=== PATIENT | male | born 1965 | race Caucasian/White ===

== ENCOUNTER 2017-04-11 13:37 | Observation (INO) | payer MEDICARE, OTHER ==
[2017-04-11] VITALS (25 sets, daily range): BP systolic 82–117; BP diastolic 40–58; PULSE 84–108; RESP 16–20; Ht 180.3 cm; Wt 141.0 kg
[~2017-04-11] VITALS: Ht 180.3 cm; Wt 141.0 kg
[~2017-04-11 13:37] MED LIST: ACET325T33 PO; ALLO100T PO; ASCO500C7 PO; ASPI81TA3 PO; CEFAZOLIN 1 GM/50 ML (PMX) 50 ML IVPB SCH; CHOL2000 PO; DOCU-144 PO; EPHEDrine SULFATE 50 MG/5 ML SYG ONE; GABA300C16 PO; HYDR-3498 PO; LACTATED RINGER'S 1,000 ML IV* SCH; LANT3I SC; SENN8.6C3 PO; SEVE800T7 PO; SIMV20TA PO
[2017-04-11 14:06] LABS: BASOPHIL # 0.1 10^3/ul (0.0-0.1); BASOPHILS % 0.8 % (0.0-2.0); EOSINOPHILS # 0.1 10^3/ul (0.0-0.5); EOSINOPHILS % 1.6 % (0.0-7.0); HEMOGLOBIN 12.4 g/dl (14.0-18.0); LYMPHOCYTES # 1.7 10^3/ul (0.8-2.9); LYMPHOCYTES % 19.6 % (15.0-51.0); MEAN CORPUSCULAR HEMOGLOBIN 32.4 pg (29.0-33.0); MEAN CORPUSCULAR HGB CONC 33.5 g/dl (32.0-37.0); MEAN CORPUSCULAR VOLUME 96.6 fl (82.0-101.0); MEAN PLATELET VOLUME 9.5 fl (7.4-10.4); MONOCYTE # 0.5 10^3/ul (0.3-0.9); MONOCYTES % 6.2 % (0.0-11.0); NEUTROPHILS % 70.7 % (39.0-77.0); PLATELET COUNT 173 10^3/UL (140-415); RED BLOOD COUNT 3.83 10^6/ul (4.70-6.10); RED CELL DISTRIBUTION WIDTH 13.4 % (11.5-14.5); WHITE BLOOD COUNT 8.5 10^3/ul (4.8-10.8)
[2017-04-11 14:20] LABS: INR 1.16; PROTIME 14.9 Sec (12.2-14.2); PT RATIO 1.2
--- NOTE | 2017-04-11 14:22 | RADRPT ---
PROCEDURE: XR Chest. CLINICAL INDICATION: Preop TECHNIQUE: Single frontal view of the chest was obtained. COMPARISON: None. FINDINGS: The cardiomediastinal silhouette is within normal limits. The lungs are clear. No pleural effusion or pneumothorax is identified. Right hemidiaphragm remains moderately elevated. Visualized osseou s structures are intact. IMPRESSION: No evidence of active cardiopulmonary disease. RPTAT: VV .Gera James MD, MD Date Time Electronically viewed and signed by .Gera James MD, MD on 04/11/2017 14:22 .O/
[2017-04-11 14:54] LABS: CALCIUM 9.3 mg/dl (8.4-10.2); CREATININE 6.79 mg/dl (0.61-1.24)
[2017-04-11 14:56] LABS: POTASSIUM 5.8 mmol/L (3.5-5.1)
[2017-04-11] MEDS ORDERED: INSU100C3 SQ (15:14)
[2017-04-11] MEDS ORDERED: ZOLP10TA5 PO (15:14)
[2017-04-11] MEDS ORDERED: ESOM40CA PO (15:14)
[2017-04-11] MEDS ORDERED: INSU100I22 SC (15:14)
[2017-04-11] MEDS ORDERED: LORA10TA72 PO (15:14)
[2017-04-11] MEDS ORDERED: AMIT25TA9 PO (15:14)
[2017-04-11] MEDS ORDERED: SITA50TA2 PO (15:14)
[2017-04-11] MEDS ORDERED: NEPH PO (15:14)
[2017-04-11] MEDS ORDERED: LORA10TA3 PO (15:14)
[2017-04-11] MEDS ORDERED: ROPIVACAINE 0.5 % 30 ML VIAL ONE (15:22)
[2017-04-11] MEDS ORDERED: METOCLOPRAMIDE 10 MG INJ ONE (15:27)
[2017-04-11] MEDS ORDERED: MIDAZOLAM 1 MG/ML 2 ML INJ ONE (15:27)
--- NOTE | 2017-04-11 15:27 | HPN ---
Date/Time of Note Date/Time of Note DATE: 04/11/17 TIME: 15:27 Interval H&P Admission Note Pt. seen H&P reviewed: No system changes JM JACKMAN Apr 11, 2017 15:27
[2017-04-11] MEDS ORDERED: PROPOFOL 20 ML ONE (15:57)
[2017-04-11] MEDS ORDERED: CEFAZOLIN 1 GM INJ ONE (16:06)
[2017-04-11] MEDS ORDERED: FENTAnyl 50 MCG/ML VIAL ONE (16:10)
[2017-04-11] MEDS ORDERED: LIDOCAINE 1% (STERILE-PAK) 30 ML INJ ONE (16:12)
[2017-04-11] MEDS ORDERED: BUPIVACAINE 0.5% (SDV) 30 ML INJ ONE (16:12)
[2017-04-11] MEDS ORDERED: PHENYLephrine (100 MCG/ML) 5ML SYG ONE ×3 (16:26→20:33)
[2017-04-11] MEDS ORDERED: ONDANSETRON 4 MG INJ ONE (16:26)
[2017-04-11] MEDS ORDERED: METOCLOPRAMIDE 10 MG INJ IV PRN (19:00)
[2017-04-11] MEDS ORDERED: MEPERIDINE 25 MG INJ IV PRN (19:00)
[2017-04-11] MEDS ORDERED: ONDANSETRON 4 MG INJ IV PRN (19:00)
[2017-04-11] MEDS ORDERED: HYDROmorphONE (0.2 MG/ML) 10ML SYG IV PRN ×3 (19:00)
[2017-04-11] MEDS ORDERED: DIPHENHYDRAMINE 50 MG INJ IV PRN (19:00)
[2017-04-11] MEDS ORDERED: OXYCODONE/ACETAMINOPHEN (5/325) TAB PO PRN ×2 (19:00)
--- NOTE | 2017-04-11 20:37 | OPR ---
Date/Time of Note Date/Time of Note DATE: 04/11/17 TIME: 20:34 Operative Report Preoperative Diagnosis Right radial shaft retained deep hardware, radial shaft malunion, carpal tunnel syndrome, index and middle finger trigger Postoperative Diagnosis Right radial shaft retained deep hardware, radial shaft malunion, carpal tunnel syndrome, index and middle finger trigger Operation/Procedure Performed Right radial shaft removal of deep hardware, radial shaft osteotomy with plate and screw fixation, carpal tunnel release, index and middle finger trigger release Anesthesia Type: general, other Estimated Blood Loss: 0 - 10 ml's Transfusion Required: no Specimen: none Grafts/Implants Right distal radius extension plate and screws - Acumed Complications: no JM JACKMAN Apr 11, 2017 20:36
[2017-04-11] MEDS ORDERED: INSULIN REGULAR, HUMAN 100 UNIT/1 ML 3ML VIAL SC ONE (21:00)
[2017-04-11] MEDS ORDERED: HYDROmorphONE 1 MG/ML SYG IV PRN (21:30)
[2017-04-11] MEDS ORDERED: NA POLYST SULFON 15 GM/60 ML BTL PO ONE (23:30)
[2017-04-11] MEDS ORDERED: INSULIN ASPART [NOVOLOG] 3 ML PEN SC SCH (23:30)
[2017-04-11] MEDS ORDERED: ACETAMINOPHEN 325 MG TAB PO PRN (23:30)
[2017-04-11] MEDS ORDERED: GLUCAGON 1 MG INJ IM PRN (23:45)
[2017-04-11] MEDS ORDERED: GLUCOSE GEL 15 GRAM TUBE PO PRN ×2 (23:45)
[2017-04-11] MEDS ORDERED: DEXTROSE 50% 50 ML SYRINGE IV PRN ×2 (23:45)
[2017-04-11] MEDS ORDERED: GLUCOSE GEL 15 GRAM TUBE BUCCAL PRN (23:45)
[2017-04-12] VITALS (13 sets, daily range): BP systolic 80–133; BP diastolic 37–58; PULSE 82–100; RESP 18–20
[2017-04-12] MEDS: HYDROmorphONE 1 MG/ML SYG IV PRN ×3 (00:09→13:28)
--- NOTE | 2017-04-12 01:08 | OPR ---
DATE OF OPERATION: 04/11/2017 SURGEON: Atif Brennan MD ANESTHESIA: Peripheral nerve block plus general. PREOPERATIVE DIAGNOSIS: 1. Right radial shaft fracture malunion. 2. Right distal radius retained deep hardware. 3. Right carpal tunnel syndrome. 4. Right index finger trigger. 5. Right middle finger trigger. POSTOPERATIVE DIAGNOSIS: 1. Right radial shaft fracture malunion. 2. Right distal radius retained deep hardware. 3. Right carpal tunnel syndrome. 4. Right index finger trigger. 5. Right middle finger trigger. OPERATIVE PROCEDURE: 1. Right radial shaft osteotomy with plate and screw fixation for malunion. 2. Removal of deep hardware, right distal radius. 3. Right carpal tunnel release, open. 4. Right index finger trigger release. 5. Right middle finger trigger finger release. Operative findings: 1. Malunion of the right radial shaft with significant prominence of the dorsal distal ulna with significant callus formation growing over the plate and screws. 2. Tenosynovitis at the index and middle finger flexor sheath. INDICATION FOR PROCEDURE: 51-year-old male with a previous injury to the right wrist. He underwent surgical fixation and he is unsure what happened subsequent to that, but he has had deformity at his right wrist as well as pain ever since then. He also had numbness throughout his right hand as well as triggering of the index and middle fingers. We discussed options and considering that he had tried conservative management for 2 years with no improvement, he elected to proceed with surgical intervention understanding the risks and benefits. We discussed a wide array of possibilities including possibly shortening the ulna if it was significantly positive after osteotomy of the distal radius. I discussed with the patient that his medical condition may preclude us from doing extensive surgery in one sitting and that we would try to get as much done as possible in one sitting that is safe for him medically. The patient understood and elected to proceed, understanding risks and benefits. OPERATIVE PROCEDURE: The patient was seen in the preoperative area. All further questions were answered. Again, he gave informed consent understanding the risks and benefits. The patient was taken to the operative suite, placed in supine position. A peripheral nerve block was performed at my request for perioperative anesthesia as well as postoperative pain relief. The block was working but was not complete and therefore patient required placement of general anesthesia. The tourniquet was placed on the right upper extremity. The right upper extremity was prepped with ChloraPrep stick and draped in usual sterile fashion. Esmarch bandage was used to exsanguinate the extremity and tourniquet inflated to 250 mmHg. Attention was first turned to the carpal tunnel release and a 2 cm incision at the base of the palm was utilized with sharp dissection carried down through skin and subcutaneous tissue. Retractors were deepened and the palmar aponeurosis was identified and was incised along its ulnar border. Retractors were deepened. The transverse carpal ligament was identified, and was incised along its ulnar border. A retractor placed distally and the ligament was divided at its distal extent under direct visualization. Attention turned proximally and the ligament was divided along its ulnar border under direct visualization. The ligament was completely released and the wound was copiously irrigated. Skin closed with 4-0 nylon. Attention then turned to the middle finger. An oblique incision over the A1 jeff of the middle finger was utilized with sharp dissection carried down through skin and subcutaneous tissue. Scissor dissection revealed the flexor sheath and the sheath was incised along its midline including the entire A1 jeff as well as the proximal 1 mm of the A2 jeff and the PA jeff proximally. The flexor tendons had good glide after release and a flexor tenolysis was performed to ensure glide. Attention was then turned to the index finger and an identical procedure was performed in the middle finger with an oblique incision and sharp dissection through skin and subcutaneous tissue. The flexor sheath incised along its midline including the PA, A1 and the proximal 1 mm of the A2 jeff. A flexor tenolysis was performed. Both wounds were copiously irrigated. Skin closed with 5-0 nylon. Attention was then turned to the distal radius removal of hardware and the previous incision was utilized and was extended proximally, understanding that we would require proximal extension for the osteotomy and plate and screw fixation to correct the malunion. Sharp dissection carried down through skin and subcutaneous tissue. Scissor dissection was used to access the radius as there was significant distortion of normal anatomy and careful dissection was required to preserve all structures including a radial artery that was scarred in and the median nerve which had been transposed radially. The structures were preserved including the radial sensory nerve radially, which had also moved into the surgical site. Care was taken to carefully dissect out all neurovascular structures and tendons and the FCR tendon was revealed and retracted ulnarly. The FPL tendon was found and was retracted ulnarly. The radial shaft was identified and had significant angulation. The angulation was such that I was unable to remove the distal row screws as the wrist was in such flexion that the proximal forearm was in the way of removal of hardware. Therefore, I made the decision to proceed with the osteotomy prior to removing the plate to allow for removal of hardware. Attention was turned to the dorsal radial shaft and sharp dissection carried down through skin and subcutaneous tissue. The first dorsal compartment was identified and was elevated off of the radial shaft at the area of malunion. After the malunion site was visualized circumferentially an oscillating saw was used to make a cut at the malunion site transversely with the proximal shaft. After the cortices had been penetrated, the malunion was freed up, and was brought into a more anatomic position. This allowed me to remove the hardware from the previous plate and screws at the distal radius. All plate and screws were removed, and the volar aspect of the distal radius was rongeured down in order to provide a nice smooth surface for a new plate placement. The most appropriate plate for this pattern was the AcuMed distal radius plate with a proximal extension. The plate was placed across the malunion site and was secured into the shaft proximally. The distal radius was then brought to the plate into a more anatomic position and a screw was placed into the cortex to bring it down flush with the plate. X-ray imaging confirmed appropriate hardware placement and bony alignment which had been significantly improved from the preoperative images. Additional cortical and locking screws were placed proximally and distally and the plate was nicely secured. The dorsal aspect of the malunion site had excellent bone that was prominent dorsally, and this was used for bone autograft in the osteotomy site as an opening wedge osteotomy was used. Additional cancellous bone was used to put into the osteotomy site to recreate normal anatomy and recreate length. The wound was copiously irrigated prior to bone graft placement and then bone graft was densely packed into the osteotomy site. The dorsal and volar wounds were closed with 4-0 nylon. Final x-ray imaging confirmed interval improvement in the fracture alignment with appropriate hardware placement. A Xeroform was placed over the wound followed by sterile gauze, Webril and a sugar-tong splint. Tourniquet was deflated. Of note, the procedure did take an extensive period of time and the first tourniquet was 120 minutes and was let down for a full 30 minutes to allow for reperfusion. The tourniquet was then inflated a second time for 61 minutes. The patient was awakened from anesthesia and taken to the postoperative suite in stable condition, tolerated the procedure well without complications. SPECIMENS: None. ESTIMATED BLOOD LOSS: 5 mL. Sponge, instrument, needle counts correct. Tourniquet time 120 minutes followed by 30 minutes of no tourniquet time, followed by 61 minutes of tourniquet time. Implant: Acumed distal radius plate with extension Fluoroscopic images: 25. CONDITION ON DISCHARGE: Stable. Dictated By: Atif Brennan MD /jamil/teddy /Document#: [id number] KEVON
[2017-04-12] MEDS: INSULIN GLARGINE [LANtus] 3 ML PEN SC SCH ×2 (01:11→21:05)
[2017-04-12] MEDS: Insulin NOVOLOG SS MODERATE Algorithm (SS with meals and bedtime) SC SCH ×5 (01:12→21:06)
[2017-04-12] MEDS: ACCU-CHEK XX SCH (02:00)
[2017-04-12] MEDS: HYDROCODONE/APAP (5/325) TAB PO PRN ×2 (03:22→21:06)
[2017-04-12] MEDS ORDERED: INSULIN ASPART [NOVOLOG] 3 ML PEN SC ONE (03:30)
--- NOTE | 2017-04-12 08:23 | RADRPT ---
Vent Rate: 86 bpm RR Interval: 0 msec [place] Interval: 188 msec QRS Duration: 144 msec QT Interval: 390 msec QTC Interval: 466 msec P-R-T Tracy: 96 - 85 - 44 degrees Normal sinus rhythm Right bundle branch block Abnormal ECG Electronically Signed By: Kayleigh Renee [id number]
--- NOTE | 2017-04-12 10:42 | CONS ---
DATE OF ADMISSION: 04/11/2017 DATE OF CONSULTATION: 04/12/2017 REASON FOR CONSULTATION: Endstage renal disease. HISTORY OF PRESENT ILLNESS: This is a 51-year-old male with a past medical history of endstage renal disease, on dialysis Sunday, , Sunday, access left AV fistula. The patient's primary print support specialist is Dr. Samano. The patient also with a history of hypertension, history of diabetes, morbid obesity, history of lower extremity wounds, who presents to [facility] to undergo elective surgery of the patient's right humerus. The patient had malalignment of his right humerus. As a result, he was brought in and underwent surgical correction of his radial shaft fracture. Following the procedure, the patient was admitted to telemetry for further evaluation and care. Upon my evaluation, patient at this time is currently stable. Denies any fevers, chills, nausea, vomiting. PAST MEDICAL HISTORY: As stated above, history of hypertension, history of diabetes, history of morbid obesity, history of chronic lower extremity wounds, history of endstage renal disease, history of anemia, history of peripheral vascular disease. PAST SURGICAL HISTORY: Status post AV fistula placement, status post lower extremity surgeries. FAMILY HISTORY: Noncontributory. SOCIAL HISTORY: Does not drink, smoke, or do drugs. MEDICATION: The patient's medications have been reviewed. REVIEW OF SYSTEMS: Fourteen review of systems was conducted. Pertinent positives noted in HPI, otherwise negative. PHYSICAL EXAMINATION: VITAL SIGNS: Blood pressure 122/56, respirations 20, pulse 93, temperature 98.1. HEENT: Head is normocephalic. Pupils are reactive to light. NECK: Supple. HEART: Regular rate. LUNGS: Diminished breath sounds at the base. ABDOMEN: Soft, nontender to palpation. No rebound or guarding. EXTREMITIES: Negative for clubbing and cyanosis. Positive edema. DERMATOLOGIC: No rashes. MUSCULOSKELETAL: Patient has a left AV fistula. Right upper extremity dressing is clean, dry, and intact. NEUROLOGIC: No focal deficits. The patient's medications have been reviewed. LABORATORY: From 04/11/2017 shows white count 8.5, hemoglobin 10.4, hematocrit 37.4, platelet count 170. Sodium 150, potassium 5.8, BUN 37, creatinine 6.79. IMPRESSION AND PLAN: This is a 51-year-old male who presents with: 1. Endstage renal disease. The patient is on dialysis Sunday, , and Sunday with access in left AV fistula. Plans for dialysis today for 3 hours on 2 K bath, calcium 2.5, ultrafiltration as tolerated. 2. Hypokalemia. The patient will be dialyzed on a 2 potassium bath. Continue low-potassium diet. 3. Mineral bone disorder. Monitor calcium and phosphorus levels. We will give phos binders as needed. 4. Anemia. Monitor hemoglobin and hematocrit levels. We will give Epogen with hemodialysis. 5. Diabetes. Continue Accu-Chek and sliding scale. 6. Hypertension. Continue to monitor blood pressure. Continue medical management. 7. Status post right radial shaft fracture, status post surgical correction. Continue medical management. Follow up with surgery. Continue pain control. Thank you, Dr. Brennan for this very interesting consult. It will be a pleasure to follow patient with you throughout the hospital course. Dictated By: Vipin Smith DO /jamil/roxanne /Document#: [id number]
--- NOTE | 2017-04-12 12:43 | HP ---
Date/Time of Note Date/Time of Note DATE: 04/12/17 TIME: 12:17 Assessment/Plan VTE Prophylaxis VTE Prophylaxis Intervention: heparin Lines/Catheters IV Catheter Type (from Nrsg): Saline Lock Assessment/Plan Assessment/Plan - Right radial shaft retained deep hardware, radial shaft malunion, carpal tunnel syndrome, index and middle finger trigger - Right radial shaft removal of deep hardware, radial shaft osteotomy with plate and screw fixation, carpal tunnel release, index and middle finger trigger release - admit to [facility] - per ortho - pain control - ADMIT ORDERS DONE - resume home meds - Hyperkalemia - Gettig HD now - SP Fall - no new events, pt is A/O. - diabetes Mellitus - Glycemic control - 1800 kofi ADA diet - Hgb AM - ESRD - HD per nephro HEPARIN FOR dvt prophylaxis Protonix for gi prophylaxis dw Dr Klein/STAFF/paTIENT HPI/ROS Admit Date/Time Admit Date/Time Apr 11, 2017 at 20:58 ROS This is a 69 years old male patient with past hx of - SP Fall, diabetes Mellitus, ESRD, Right radial shaft retained deep hardware, radial shaft malunion, carpal tunnel syndrome, index and middle finger trigger. Patient is admitted under Dr Klein for sp Right radial shaft removal of deep hardware, radial shaft osteotomy with plate and screw fixation, carpal tunnel release, index and middle finger trigger release. Patient is having HD now,NAD, feels better. Rt UE- cast noted with intact CSM. Denies any chest pain, shortness of breath. All Qs ANSWERED. dw staff Eyes: no complaints ENT: no complaints Respiratory: no complaints Cardiovascular: no complaints Gastrointestinal: no complaints Genitourinary: bleeding Musculoskeletal: bone/joint pain Skin: no complaints PMH/Family/Social Past Medical History esrd mechanical fall Past Surgical History Past Surgical Hx: other Social History Alcohol Use: none Smoking Status: Never smoker Drug Use: none Exam/Review of Systems Vital Signs Vitals Vital Signs Date Time Temp Pulse Resp B/P Pulse Ox O2 Delivery O2 Flow Rate FiO2 04/12/17 09:42 Nasal Cannula 2.0 04/12/17 07:00 98.1 93 20 120/56 98 Intake and Output 04/11/17 04/11/17 04/12/17 15:00 23:00 07:00 Intake Total 500 ml 100 ml Output Total 50 ml Balance 450 ml 100 ml Exam Constitutional: alert, oriented, other (OBESE) Psych: nl mood/affect Respiratory: clear to auscultation, normal air movement Cardiovascular: regular rate and rhythm Gastrointestinal: non-tender, other (obese), soft Musculoskeletal: other (sp right radial shaft osteotomy with plate and screw fixation, carpal tunnel release, index and middle finger trigger release. Cast noted- CSM intact. No outside of cast - bleeding noted.) Extremities: other Neurological: nl mental status, nl speech Labs Result Diagram: 04/11/17 1358 04/11/17 1358 Medications Medications Current Medications Lactated Ringer's (Lr) 1,000 ml @ 20 mls/hr Q24H IV* ; Start 04/11/17 at 07:00; Stop 04/13/17 at 08:59 Acetaminophen/ Hydrocodone Bitart ([place] (5/325)) 1 tab Q4H PRN PO PAIN Last administered on 04/12/17 03:22; Admin Dose 1 TAB; Start 04/11/17 at 21:30 Hydromorphone HCl (Dilaudid) 1 mg Q4H PRN IV PAIN Last administered on 08:14; Admin Dose 1 MG; Start 04/12/17 at 00:00 Diagnostic Test (Pha) (Accu-Chek) 1 ea 02 XX ; Start 04/12/17 at 02:00 Insulin Glargine (Lantus) 40 unit DAILY@20 SC Last administered on 04/12/17 01 :11; Admin Dose 40 UNIT; Start 04/11/17 at 23:30 Acetaminophen (Tylenol Tab) 650 mg Q4H PRN PO PAIN AND OR ELEVATED TEMP; Start 04/11/17 at 23:30 Miscellaneous Information 1 ea NOTE XX ; Start 04/11/17 at 23:45 Glucose (Glutose) 15 gm Q15M PRN PO DECREASED GLUCOSE; Start 04/11/17 at 23:45 Glucose (Glutose) 22.5 gm Q15M PRN PO DECREASED GLUCOSE; Start 04/11/17 at 23:45 Dextrose (D50w Syringe) 25 ml Q15M PRN IV DECREASED GLUCOSE; Start 04/11/17 at 23:45 Dextrose (D50w Syringe) 50 ml Q15M PRN IV DECREASED GLUCOSE; Start 04/11/17 at 23:45 Glucagon (Glucagen) 1 mg Q15M PRN IM DECREASED GLUCOSE; Start 04/11/17 at 23:45 Glucose 15 gm 15 gm Q15M PRN BUCCAL DECREASED GLUCOSE; Start 04/11/17 at 23:45 Albumin Human (Albumin Human 25%) 100 ml @ 100 mls/hr ONCE ONCE IV Last administered on 04/12/17t 11:50; Admin Dose 100 MLS/HR; Start 04/12/17 at 13:00 ; Stop 04/12/17 at 13:59 CARLITA GANT Apr 12, 2017 12:28
[2017-04-12] MEDS ORDERED: ALBUMIN HUMAN 25% 100 ML IV ONE (13:00)
[2017-04-12] MEDS ORDERED: ACETAMINOPHEN 325 MG TAB PO PRN (13:00)
[2017-04-12 13:44] LABS: BASOPHILS % 0.5 % (0.0-2.0); EOSINOPHILS % 0.6 % (0.0-7.0); HEMATOCRIT 29.3 % (42.0-52.0); LYMPHOCYTES # 0.9 10^3/ul (0.8-2.9); LYMPHOCYTES % 13.1 % (15.0-51.0); MEAN CORPUSCULAR HEMOGLOBIN 32.9 pg (29.0-33.0); MEAN CORPUSCULAR HGB CONC 34.1 g/dl (32.0-37.0); MEAN CORPUSCULAR VOLUME 96.4 fl (82.0-101.0); MONOCYTE # 0.6 10^3/ul (0.3-0.9); MONOCYTES % 8.3 % (0.0-11.0); NEUTROPHIL # 5.1 10^3/ul (1.6-7.5); NEUTROPHILS % 76.6 % (39.0-77.0); PLATELET COUNT 152 10^3/UL (140-415); RED BLOOD COUNT 3.04 10^6/ul (4.70-6.10); RED CELL DISTRIBUTION WIDTH 13.3 % (11.5-14.5); WHITE BLOOD COUNT 6.6 10^3/ul (4.8-10.8)
[2017-04-12] MEDS: GABAPENTIN 300 MG CAP PO SCH ×2 (13:44→20:39)
[2017-04-12 14:08] LABS: CALCIUM 8.6 mg/dl (8.4-10.2); CHOL/HDL RATIO 5.6 RATIO; POTASSIUM 3.2 mmol/L (3.5-5.1)
[2017-04-12] MEDS: SEVELAMER CARBONATE 0.8 GM PKT PO SCH (18:08)
[2017-04-12] MEDS: ALLOPURINOL 100 MG TAB PO SCH (20:39)
[2017-04-12] MEDS: ASCORBIC ACID 500 MG TAB PO SCH (20:39)
[2017-04-12] MEDS ORDERED: ATORVASTATIN 20 MG TAB PO SCH (21:00)
[2017-04-12] MEDS ORDERED: AMITRIPTYLINE 25 MG TAB PO SCH (21:00)
[2017-04-12] MEDS ORDERED: ZOLPIDEM 5 MG TAB PO PRN (22:00)
--- NOTE | 2017-04-13 01:24 | RADRPT ---
PROCEDURE: Fluoroscopy services. CLINICAL INDICATION: Plate and screw fixation for remote fracture of the distal right radius, now f or hardware removal and replacement. TECHNIQUE: Fluoroscopy services during removal of old plate and screw fixation, osteotomy at the d istal diaphysis of the right radius and placement of new ventral plate and screw fixation over the d istal right radius. COMPARISON: Right wrist plain film series dated 04/10/2016 FINDINGS: Fluoroscopy services during removal of old plate and screw fixation, osteotomy at the distal diaphys is of the right radius and placement of new ventral plate and screw fixation over the distal right r adius. Multiple intraoperative spot films were obtained at intermediate stages during this procedure and demonstrate removal of old plate and screw fixator, osteotomy at the distal radius, improved an atomic alignment of the distal radius fragment and placement of new ventral plate and screw fixation . No fluoroscopy time data was provided with these images. IMPRESSION: Fluoroscopy services during removal of old plate and screw fixation, osteotomy at the distal diaphys is of the right radius and placement of new ventral plate and screw fixation over the distal right r adius. RPTAT: [facility] Physician Jaime Date Time Electronically viewed and signed by Physician Jaime on 04/13/2017 01:24 RS/
[2017-04-13 01:54] VITALS: BP 129/57; RESP 20
[2017-04-13] MEDS: ACCU-CHEK XX SCH (02:01)
[2017-04-13] MEDS ORDERED: PANTOPRAZOLE (EC) 40 MG TAB PO SCH (06:00)
[2017-04-13 06:01] LABS: WHITE BLOOD COUNT 5.8 10^3/ul (4.8-10.8)
[2017-04-13 06:02] LABS: BASOPHILS % 0.3 % (0.0-2.0); EOSINOPHILS # 0.1 10^3/ul (0.0-0.5); EOSINOPHILS % 1.6 % (0.0-7.0); HEMATOCRIT 30.4 % (42.0-52.0); HEMOGLOBIN 9.8 g/dl (14.0-18.0); LYMPHOCYTES # 1.1 10^3/ul (0.8-2.9); LYMPHOCYTES % 18.7 % (15.0-51.0); MEAN CORPUSCULAR HEMOGLOBIN 31.5 pg (29.0-33.0); MEAN CORPUSCULAR HGB CONC 32.2 g/dl (32.0-37.0); MEAN CORPUSCULAR VOLUME 97.7 fl (82.0-101.0); MEAN PLATELET VOLUME 10.1 fl (7.4-10.4); MONOCYTE # 0.5 10^3/ul (0.3-0.9); MONOCYTES % 8.1 % (0.0-11.0); NEUTROPHIL # 4.1 10^3/ul (1.6-7.5); NEUTROPHILS % 70.1 % (39.0-77.0); PLATELET COUNT 146 10^3/UL (140-415); RED BLOOD COUNT 3.11 10^6/ul (4.70-6.10); RED CELL DISTRIBUTION WIDTH 13.4 % (11.5-14.5)
[2017-04-13 06:25] LABS: CREATININE 6.63 mg/dl (0.61-1.24); MAGNESIUM 1.7 mg/dl (1.7-2.5); PHOSPHORUS 4.7 mg/dl (2.5-4.9); POTASSIUM 4.1 mmol/L (3.5-5.1)
[2017-04-13] MEDS ORDERED: EPOETIN 10000 UNITS/1 ML INJ (ESRD) SC SCH (08:00)
[2017-04-13 08:10] VITALS: BP 113/55; RESP 17
[2017-04-13] MEDS: SEVELAMER CARBONATE 0.8 GM PKT PO SCH ×3 (08:50→17:45)
[2017-04-13] MEDS: ASCORBIC ACID 500 MG TAB PO SCH (08:51)
[2017-04-13] MEDS: ALLOPURINOL 100 MG TAB PO SCH (08:51)
[2017-04-13] MEDS: GABAPENTIN 300 MG CAP PO SCH ×2 (08:51→12:49)
[2017-04-13] MEDS: Insulin NOVOLOG SS MODERATE Algorithm (SS with meals and bedtime) SC SCH ×3 (08:55→17:41)
[2017-04-13] MEDS ORDERED: LORATADINE 10 MG TAB PO SCH (09:00)
[2017-04-13] MEDS ORDERED: ASPIRIN 81 MG TAB PO SCH (09:00)
[2017-04-13] MEDS ORDERED: CHOLECALCIFEROL 2,000 UNIT CAP PO SCH (09:00)
[2017-04-13] MEDS ORDERED: MULTIVIT/CA CARB/B CMPLX/FA TAB PO SCH (09:00)
--- NOTE | 2017-04-13 09:04 | PN ---
DATE: 04/13/2017 SUBJECTIVE DATA: The patient is stable. Had hemodialysis yesterday, tolerated well. No other events noted. OBJECTIVE DATA: VITAL SIGNS: Blood pressure 129/57, respirations 20, pulse 97, temperature 97.9. HEENT: Head is normocephalic. NECK: Supple. HEART: Regular rate. LUNGS: Show diminished breath sounds at the base. ABDOMEN: Soft, nontender to palpation. No rebound or guarding. EXTREMITIES: Negative for clubbing, cyanosis. No edema. DERMATOLOGIC: Clean. No rashes MUSCULOSKELETAL: Patient has a left AV fistula. Right upper extremity dressing clean, dry, intact. NEUROLOGIC: No focal deficits. LABORATORY AND DIAGNOSTIC DATA: Show white count 5.8, hemoglobin 9.8, crit 30.4, platelet count is 146. Sodium 140, potassium 4.1, chloride 93, BUN 35, creatinine 6.63. Hemoglobin A1c is 9.2. ASSESSMENT AND PLAN: 1. End-stage renal disease. The patient is on dialysis Sunday, , Sunday with access left arteriovenous fistula. Patient had hemodialysis yesterday, tolerated well. Plan for dialysis tomorrow. 2. Hypokalemia, improved. Continue dialysis on a 2 potassium bath. Continue low-potassium diet. 3. Mineral bone disorder. We will monitor calcium and phosphorus levels. Give phosphorus binders if needed. 4. Anemia. Monitor H and H levels. Continue Epogen with dialysis. 5. Diabetes. Continue current insulin regimen. 6. Hypertension. Continue current blood pressure regimen. 7. Status post right radial shaft fracture, status post surgical correction. Continue pain control. Follow up with Surgery for further recommendations. Dictated By: Vipin Smith DO /jamil/rita /Document#: [id number]
[2017-04-13] MEDS: HYDROCODONE/APAP (5/325) TAB PO PRN ×2 (09:09→17:25)
[2017-04-13 14:00] VITALS: BP 100/43; RESP 17
--- NOTE | 2017-04-17 22:31 | DS ---
Date/Time of Note Date/Time of Note DATE: 04/17/17 TIME: 22:26 Discharge Summary Admission/Discharge Info Admit Date/Time Apr 11, 2017 at 20:58 Discharge Date/Time Apr 13, 2017 at 19:15 Patient Condition: Stable Hx of Present Illness This is a 69 years old male patient with past hx of - SP Fall, diabetes Mellitus, ESRD, Right radial shaft retained deep hardware, radial shaft malunion, carpal tunnel syndrome, index and middle finger trigger. Patient is admitted under Dr Klein for sp Right radial shaft removal of deep hardware, radial shaft osteotomy with plate and screw fixation, carpal tunnel release, index and middle finger trigger release. Patient is having HD now,NAD, feels better. Rt UE- cast noted with intact CSM. Denies any chest pain, shortness of breath. Hospital Course -Malunion of the right radial shaft with significant prominence of the dorsal distal ulna with significant callus formation growing over the plate and screws. Tenosynovitis at the index and middle finger flexor sheath. S/p surgical correction by Dr Brennan. - HD ESRD - DM - HTN - Anemia of chronic disease - S/p Fall Home Meds Reported Medications Insulin Aspart (Novolog FlexPen) 100 Unit/1 Ml Insuln.pen, 22 UNITS SC WITH BREAKFAST LUNCH, EA 04/11/17 Zolpidem Tartrate* (Zolpidem Tartrate*) 10 Mg Tablet, 10 MG PO QHS Y for INSOMNIA, #30 TAB 04/11/17 Multivit/Ca Carb/B Cmplx/Fa* (Danya-Kitty*) 1 Tab Tab, 1 TAB PO DAILY, TAB 04/11/17 Esomeprazole Mag Trihydrate (Nexium) 40 Mg Capsule., 40 MG PO DAILY, #30 CAP 04/11/17 Sitagliptin* (Januvia*) 50 Mg Tablet, 50 MG PO DAILY, #30 TAB 04/11/17 Amitriptyline Hcl* (Amitriptyline Hcl*) 25 Mg Tablet, 25 MG PO QHS, #30 TAB 04/11/17 Loratadine* (Loratadine*) 10 Mg Tablet, 10 MG PO DAILY, #30 TAB 04/11/17 Cholecalciferol* (Vitamin D3*) 2,000 Unit Cap, 2000 UNIT PO DAILY, CAP 01/07/16 Ascorbic Acid* (Vitamin C*) 500 Mg Capsule.sa, 500 MG PO BID, CAP 01/07/16 Aspirin* (Aspirin* Chew) 81 Mg Tab.chew, 81 MG PO DAILY, TAB.CHEW 01/07/16 Simvastatin* (Zocor*) 20 Mg Tablet, 20 MG PO QHS, #30 TAB 01/07/16 Sevelamer Carbonate* (Renvela*) 800 Mg Tablet, 0.8 GM PO WITH MEALS, TAB 01/07/16 Insulin Glargine* (Lantus*) 100 Unit/Ml Soln, 40 UNIT SC QHS, #1 VIAL 01/07/16 Acetaminophen* (Tylenol*) 325 Mg Tablet, 650 MG PO Q4H Y for FEVER GREATER THAN 100.6, TAB 08/17/15 Gabapentin* (Gabapentin*) 300 Mg Capsule, 300 MG PO TID, CAP 08/17/15 Allopurinol* (Allopurinol*) 100 Mg Tablet, 100 MG PO BID, TAB 08/17/15 Discontinued Reported Medications Insulin Aspart (Novolog) 100 Unit/1 Ml Cartridge, 100 UNIT SQ 04/11/17 Loratadine (Loratadine) 10 Mg Tab.rapdis, 10 MG PO DAILY 04/11/17 Hydrocodone Bit-Acetaminophen* (Goodyear*) 5-325 Mg Tab, 1 TAB PO Q6 Y for MODERATE PAIN LEVEL 4-6, TAB 08/17/15 Sennosides* (Senna*) 8.6 Mg Capsule, 1 CAP PO DAILY, CAP 08/17/15 Docusate Sodium* (Colace*) 100 Mg Capsule, 100 MG PO BID, #60 CAP 08/17/15 Follow-up Plan f/up with Dr Brennan in 1-2 weeks, f/up in HD center for next HD. Primary Care Provider MD KASI Stokes SVETLANA Apr 17, 2017 22:31
== END 2017-04-13 19:15 | disposition home health service (06) ==
LOC: SDS 13:37 → REC 20:58 → MS1 22:27
PROVIDERS: ADMIT Orthopaedic Surgery Hand Surgery; ATTEND Orthopaedic Surgery Hand Surgery
DX: S52.301P Unspecified fracture of shaft of right radius, subsequent encounter for closed fracture with malunion (principal); G56.01 Carpal tunnel syndrome, right upper limb; X58.XXXD Exposure to other specified factors, subsequent encounter; M65.321 Trigger finger, right index finger; M65.341 Trigger finger, right ring finger; M65.841 Other synovitis and tenosynovitis, right hand; E11.22 Type 2 diabetes mellitus with diabetic chronic kidney disease; N18.6 End stage renal disease; I12.0 Hypertensive chronic kidney disease with stage 5 chronic kidney disease or end stage renal disease; Z99.2 Dependence on renal dialysis; D63.8 Anemia in other chronic diseases classified elsewhere; E87.5 Hyperkalemia
CPT/HCPCS: 25400; 26055; 64721; 71010; 73110; 80048; 80061; 82962; 83036; 83735; 84100; 85025; 85610; 85730; 90935; 93005; C1762; G0378; J0690; J1170; J1815; J2250; J2370; J2405; J2765; J2795; J3010; J7120; P9047

== ENCOUNTER 2017-09-26 13:14 | Day surgery (SDC) | END 2017-09-27 11:31 | disposition home or self-care (01) ==

== ENCOUNTER → 2019-02-17 | Outpatient (CLI) | payer MEDICARE, OTHER ==
[~2019-02-17] MED LIST changes: -ACET325T33 PO; +AMIT25TA9 PO; -ASCO500C7 PO; -ASPI81TA3 PO; +ASPI81TA52 PO; -CEFAZOLIN 1 GM/50 ML (PMX) 50 ML IVPB SCH; -CHOL2000 PO; +CHOL200073 PO; -DOCU-144 PO; -EPHEDrine SULFATE 50 MG/5 ML SYG ONE; +ESOM40CA PO; -HYDR-3498 PO; -LACTATED RINGER'S 1,000 ML IV* SCH; +LORA10TA3 PO; +MIDO10TA PO; +NEPH PO; +NOVO3I SC; -SENN8.6C3 PO; +SITA50TA2 PO; +TERB250T46 PO; +ZOLP10TA5 PO
== END | disposition home or self-care (01) ==
LOC: RAD 15:51
PROVIDERS: ATTEND Podiatrist Foot & Ankle Surgery
DX: L97.429 Non-pressure chronic ulcer of left heel and midfoot with unspecified severity (principal)

== ENCOUNTER 2019-04-17 14:54 | Day surgery (SDC) | payer MEDICARE, OTHER ==
[~2019-04-17] VITALS: Ht 180.3 cm; Wt 174.8 kg
[2019-04-17] VITALS (16 sets, daily range): BP systolic 110–121; BP diastolic 53–70; PULSE 78–82; RESP 14–18; Ht 180.3 cm; Wt 174.8 kg
[~2019-04-17 14:54] MED LIST changes: +APIX5TAB PO; +ASPI-903 PO; +IBUP-1542 PO; +LEVEM SC; +[UNRECOGNIZED DRUG - OTHER]
--- NOTE | 2019-04-17 16:30 | HPN ---
Date/Time of Note Date/Time of Note DATE: 04/17/19 TIME: 16:30 Interval H&P Admission Note Pt. seen H&P reviewed: No system changes HONG MENDOZA MD Apr 17, 2019 16:30
--- NOTE | 2019-04-17 16:31 | PN ---
Date/Time of Note Date/Time of Note DATE: 04/17/19 TIME: 16:31 Assessment/Plan Assessment/Plan Chief Complaint/Hosp Course DATE: 04/17/2019 Vascular Surgery Consultation Note: Dear Doctors: Mr. Parikh is a 50-year-old gentleman with extensive past medical history with ESRD and left upper extremity fistula evaluation in addition to his bilateral lower extremity venous insufficiency and ulcers. Upon discussion with the patient, he has had a history of left upper extremity AV fistula creation about 7 years ago. The patient also mentioned that he had some sort of left upper extremity revascularization where veins were harvested from his lower extremities. Upon surveillance he does have areas of new intimal hyperplasia in which we are continuing with fistula ultrasound as there is concern for possible fistula thrombosis. The patient has mentioned has history falls, where he had the right knee and thigh injury and fractures and right arm fracture which have required multiple orthopedic procedures and as of recent had developed recurrent lower leg ulcers that were managed with local wound care and compression dressings with our podiatry colleagues. however, he has a heel ulcer that has gradually worsened despite local wound care and it requires more surgical debridement to facilitate the wound healing. At the moment the patient denies shortness of breath, chest pain, nausea, vomiting, fever, or chills. The patient does mention that he has had a history of claudication, as he is not able to ambulate for extended period of time and has become wheelchair secondary to his injuries for extended distances. He would like to have everything done to salvage his limb even at the cost of his life. Cant imagine living without his limb. And he is continuing with physical therapy PAST MEDICAL HISTORY: Diabetes, end-stage renal disease, hypertension, C difficile at the moment, bilateral lower extremity venous insufficiency with left calf ulcer.morbid obesity, atherosclerosis of bilateral lower extremities PAST SURGICAL HISTORY 1. Multiple chest wall catheter placements for dialysis. 2. Multiple left upper extremity AV fistula creations and vein harvest from the left leg and left upper extremity revascularization. 3. Right forearm surgery. 4. Right knee surgery. ALLERGIES 1. SULFAMETHOXAZOLE. 2. TRIMETHOPRIM. SOCIAL HISTORY: Denies tobacco, alcohol, illicit drug use. FAMILY HISTORY: Diabetes and hypertension. PHYSICAL EXAMINATION GENERAL: He is alert and oriented x3. No apparent distress. HEENT: Normocephalic, atraumatic. Mucosa moist. EOMI, PERRLA. NECK: Supple. No carotid bruit. PULMONARY: Coarse breath sounds bilaterally, decreased at the bases. CARDIOVASCULAR: S1, S2 present. No murmurs. ABDOMEN: Soft, nontender, nondistended. Bowel sounds positive. EXTREMITIES: -Right lower extremity palpable femoral pulse, nonpalpable pedal pulse. Motor, sensory intact. Capillary refill 3 seconds. Extensive lipodermatosclerosis extends from the ankle all the way up to the knee. Edema 2+. No open ulcers. -Left lower extremity palpable femoral pulse, nonpalpable pedal pulse. Motor, sensory intact. Capillary refill 3 seconds. Extensive lipodermatosclerosis extends from the ankle to the knee. Heel ulcer with exposure of subcutaneous tissue -Large legs ASSESSMENT AND PLAN 1. End-stage renal disease. It seems that the patient has a left upper extremity fistula that upon examination has weak bruit and thrill. The patient mentioned that this seems to be a norm. However, he has not seen a vascular surgeon in some time. Upon our new surveillance fistula ultrasound to better delineate the patient's upper extremity fistula it appears he has areas of new intimal hyperplasia that we will need to continue and monitor as there is c oncern for possible thrombosis. We will continue with fistula ultrasound 2. Bilateral lower extremity venous insufficiency with a left leg ulcer (likely clinical, etiologic, anatomic, pathophysiologic [CEAP] classification 6). It seems that the patient has had history of bilateral lower extremity venous insufficiency. He will need to continue with 3-layer compression therapy transition to compression stockings. Will need to be compliant keep his legs. His heel ulcer may be related to diabetes and has gradually worsened requiring further surgical debridement with application of STSG substitute to assist with regenerative tissue to facilitate wound healing. He has hasked for all to be done to salvage his limb and he understands that he will require multiple serial debridements with application of skin graft substitute 3. Bilateral lower extremity atherosclerosis with claudication. It seems that the patient not having palpable pedal pulses could be contributed to the patient's atherosclerotic disease and diabetes. We will continue to monitor with surveillance arterial studies 4. Optimize vascular status (blood pressure medications, diet, nutrition, exercise, sugar control, antiplatelets). 5. Discussed findings plan and management with the patient and a understands all that is involved Thank you for allowing us to partake in the care of your patient please call with any questions Exam/Review of Systems Vital Signs Vitals Vital Signs Date Temp Pulse Resp B/P (MAP) Pulse Ox O2 O2 Flow FiO2 Time Delivery Rate 04/17/19 98.4 80 18 121/59 94 Room Air 16:39 (79) Results Result Diagram: 04/17/19 1615 04/17/19 1615 HONG MENDOZA MD Apr 17, 2019 16:31
[2019-04-17] MEDS ORDERED: POLYMYXIN/BACITRACIN 1L IRRIG ONE (17:09)
--- NOTE | 2019-04-17 17:18 | PREAC ---
Date/Time of Note Date/Time of Note DATE: 04/17/19 TIME: 17:16 Anesthesia Eval and Record Evaluation Time Pre-Procedure Interview DATE: 04/17/19 TIME: 17:16 Age 53 Sex male NPO: 8 hrs Preoperative diagnosis foot ulcer Planned procedure skin graft Past Medical History Past Medical History: Includes Cardio: HTN, CHF Endo: Diabetes Neuro: Peripheral neuropathy Renal: ESRD on dialysis Surgery & Anesthesia Issues No known issue Meds Anticoagulation: No Beta Jatin within 24 hr: No Reason Beta Jatin not given: Pt. not on B-Jatin Reported Medications Ibuprofen* (Ibuprofen*) 600 Mg Tablet, 600 MG PO Q8, TAB 04/17/19 [Bydreen] No Conflict Check, 2 04/17/19 Insulin Detemir (Levemir) 100 Unit/1 Ml Vial, 45 SC 04/17/19 Aspirin* (Aspirin* Chew) 81 Mg Tab.chew, 81 MG PO DAILY, TAB.CHEW 04/17/19 Apixaban* (Eliquis*) 5 Mg Tablet, 5 MG PO DAILY, TAB 04/17/19 Insulin Aspart* (Novolog Insulin Pen*) 100 Unit/Ml Soln, 25 UNIT SC WITH MEALS, EA pt took 18 units on 09-26-18 09/26/17 Sevelamer Carbonate* (Renvela*) 800 Mg Tablet, 0.8 GM PO WITH BREAKFAST DINNE, TAB 09/26/17 Aspirin (Low Dose Aspirin) 81 Mg Tablet.dr, 81 MG PO DAILY, #30 TAB 09/26/17 Allopurinol* (Allopurinol*) 100 Mg Tablet, 100 MG PO QHS, TAB 09/26/17 Cholecalciferol (Vitamin D3) (VITAMIN D-3) 2,000 Unit Capsule, 2000 UNIT PO DAILY, CAP 09/26/17 Loratadine* (Loratadine*) 10 Mg Tablet, 10 MG PO DAILY, #30 TAB 09/26/17 Simvastatin* (Zocor*) 20 Mg Tablet, 20 MG PO QHS, #30 TAB 09/26/17 Zolpidem Tartrate* (Zolpidem Tartrate*) 10 Mg Tablet, 10 MG PO QHS PRN for INSOMNIA, #30 TAB 09/26/17 Multivit/Ca Carb/B Cmplx/Fa* (Danya-Kitty*) 1 Tab Tab, 1 TAB PO DAILY, TAB 09/26/17 Midodrine* (Midodrine*) 10 Mg Tablet, 10 MG PO DAILY, TAB only on dialysis days 09/26/17 Gabapentin* (Gabapentin*) 300 Mg Capsule, 300 MG PO QHS, #60 CAP 09/26/17 Amitriptyline Hcl* (Amitriptyline Hcl*) 25 Mg Tablet, 25 MG PO QHS, #30 TAB 09/26/17 Esomeprazole Mag Trihydrate (Nexium) 40 Mg Capsule.dr, 40 MG PO DAILY, #30 CAP 09/26/17 Discontinued Reported Medications Insulin Glargine* (Lantus*) 100 Unit/Ml Soln, 35 UNIT SC BID, #1 VIAL pt took 20 units 09-26-17 09/26/17 Sitagliptin* (Januvia*) 50 Mg Tablet, 50 MG PO QAM, #30 TAB 09/26/17 Terbinafine* (Lamisil*) 250 Mg Tablet, 250 MG PO QAM, TAB 09/26/17 Meds reviewed: Yes Allergies Coded Allergies: sulfamethoxazole (Verified Allergy, Unknown, 09/26/17) trimethoprim (Verified Allergy, Unknown, 09/26/17) Allergies Reviewed: Yes Labs/Studies Labs Reviewed: Reviewed by anesthesiologist Result Diagram: 04/17/19 1615 04/17/19 1615 Laboratory Tests 04/17/19 16:15 test: N/A Pre-procedure Exam Last vitals Vital Signs Date Temp Pulse Resp B/P (MAP) Pulse Ox O2 O2 Flow FiO2 Time Delivery Rate 04/17/19 98.4 80 18 121/59 94 Room Air 16:39 (79) Airway: Adequate mouth opening, Adequate thyromental dist Mallampati: Mallampati IV Teeth: Normal Lung: Normal Heart: Normal ASA Physical Status ASA physical status: 4 Emergency: None Pre-operative Attestations Prior to commencing anesthesia and surgery, the patient was re-evaluated, there was verification of: *The patient's identity *The results of appropriate recent lab work and preoperative vital signs *The above evaluation not changing prior to induction *Anesthetic plan, risk benefits, alternative and complications discussed with patient/family; questions answered; patient/family understands, accepts and wishes to proceed. XIANG FLAHERTY DO Apr 17, 2019 17:18
--- NOTE | 2019-04-17 17:36 | PDOCDIS ---
Discharge Instructions DIAGNOSIS Discharge Diagnosis LLE nonhealing heel ulcer CONDITION [id number] Patient Condition: [id number] Good HOME CARE INSTRUCTIONS: [id number] Special Diet: [id number] diabetic diet ACTIVITY: [id number] Activity Restrictions: [id number] Slowly Increase Activity Avoid heavy lifting No Sexual Activity Do not Drive Do not operate Machinery Do not operate Power Tool Avoid Heavy Housework Keep Limb Elevated [id number] Bathing Restrictions: [id number] Sponge Bath FOLLOW UP/APPOINTMENTS Follow-up Plan do not remove dressing for 2 weeks followup in two weeks HONG MENDOZA MD Apr 17, 2019 17:36
--- NOTE | 2019-04-17 17:43 | OPR ---
Date/Time of Note Date/Time of Note DATE: 04/17/19 TIME: 17:41 Operative Report Procedure Date: Apr 17, 2019 Preoperative Diagnosis left lower extremity venous stasis and heel nonhealing ulcer Postoperative Diagnosis none Surgeon see signature line Anesthesia Type: moderate sedation Estimated Blood Loss: minimal Transfusion none Specimen none Grafts/Implants acell Complications none Pt Condition Post Procedure: stable Disposition: PACU Procedure Description DATE OF OPERATION: 04/17/2019 SURGEON: Harsha Mendoza MD PREOPERATIVE DIAGNOSIS: Bilateral lower extremity venous insufficiency and left lower extremity heel nonhealing ulcerl POSTOPERATIVE DIAGNOSIS: Same ANESTHESIA: Local with moderate sedation. ESTIMATED BLOOD LOSS: Minimal. COMPLICATIONS: None. SPECIMEN: None. GRAFTS: ACell split thickness skin graft, skin substitute. OPERATION PERFORMED: 1. Left lower extremity debridement of the skin and subcutaneous tissue no greater than 20 cm2 Of the heel 2. Application of 10 x 7 cm two layer split split-thickness skin graft substitute (xenograft ACell 2-layer sheath). 3. Application of micromatrix powder graft substitute (xenograft 1 gram). INDICATIONS: This is a 65-year-old gentleman who is a vasculopath and history of noncompliance that had presented with history of bilateral lower extremity atherosclerosis and right lower extremity gangrene. The patient underwent in the past right lower extremity bypass that upon recent evaluation with angiogram that is no longer patent. Patient does have perfusion up to the above-knee popliteal artery; however, has severe infrapopliteal disease. Further, the patient had undergone a TMA secondary to his gangrene that required a revision. The new revised stump has healed; however, the patient has developed significantly large wound on the dorsal aspect of the foot involving exposure of muscle and tendon and also the patient has heel gangrene with our previous intervention has become more of an ulcer now. The wound on forefoot has gradually closed and the heel has developed adequate granulation tissue with bleeding. The patient has requested to have everything done in order to salvage his limb as he cannot imagine his life without it, he would like to take all risks including bleeding, thrombosis, embolization, myocardial infarction, , stroke, device malfunction, infection, nephrotoxicity, limb loss. Risks, benefits, and alternatives were discussed. The patient has understood all that is involved with his sister at the bedside and agreed to proceed. We have explained to the patient in order to salvage his limb, he will require serial debridements with a split thickness skin graft substitute application in order to help heal this presenting wound. DESCRIPTION OF PROCEDURE: The patient was brought into operating room table, pl aced in supine position. Arms were placed at 80 degrees and all bony prominences were padded appropriately. Preoperative antibiotics were given. The correct site was marked and confirmed. At this point, the right lower extremity was then prepped and draped in usual standard sterile fashion. Using sharp scissors we performed excisional sharp debridement of the forefoot and heel involving the skin, subcutaneous tissue for area that was no greater than 20 cm2. As we removed all the necrotic tissue from the wound base with some bleeding, we felt it was adequate. At this point, went ahead and performed irrigation with antibiotic solution and adequate healthy wound was achieved. At this point, used xenograft Micro Matrix 1 gram powder paste in order to cover the wound defect that has been created in order to promote wound granulation in this area of the heel and the forefoot. This was followed by 2-layer split thickness skin graft matrix sheath that measured 10 x 7 cm was applied in order to cover the entire area and help achieve the coverage of this wound. At this point, Adaptic, Telfa and Kerlix were applied. The patient tolerated procedure well and was taken to the postanesthesia care unit in stable condition. All instruments, catheters, needles, wires were correct x2. HARSHA MENDOZA MD Apr 17, 2019 17:43
[2019-04-17] MEDS ORDERED: CEFAZOLIN 1 GM INJ ONE (17:50)
[2019-04-17] MEDS ORDERED: MIDAZOLAM 1 MG/ML 2 ML INJ ONE (18:10)
[2019-04-17] MEDS ORDERED: FENTAnyl 50 MCG/ML VIAL ONE (18:10)
--- NOTE | 2019-04-17 18:24 | PAC ---
Date/Time of Note Date/Time of Note DATE: 04/17/19 TIME: 18:23 Post-Anesthesia Notes Post-Anesthesia Note Last documented vital signs Vital Signs Date Temp Pulse Resp B/P (MAP) Pulse Ox O2 O2 Flow FiO2 Time Delivery Rate 04/17/19 98 78 18 90/65 94 Room Air 1825 Activity: WNL Respiratory function: WNL Cardiovascular function: WNL Mental status: Baseline Pain reasonably controlled: Yes Hydration appropriate: Yes Nausea/Vomiting absent: Yes XIANG FLAHERTY DO Apr 17, 2019 18:24
== END 2019-04-17 19:48 | disposition home or self-care (01) ==
LOC: SDS 14:54
PROVIDERS: ATTEND Student in an Organized Health Care Education/Training Program
DX: I70.244 Atherosclerosis of native arteries of left leg with ulceration of heel and midfoot (principal); I87.8 Other specified disorders of veins; L97.429 Non-pressure chronic ulcer of left heel and midfoot with unspecified severity; I13.2 Hypertensive heart and chronic kidney disease with heart failure and with stage 5 chronic kidney disease, or end stage renal disease; I50.9 Heart failure, unspecified; N18.6 End stage renal disease; Z99.2 Dependence on renal dialysis; E11.9 Type 2 diabetes mellitus without complications; Z79.82 Long term (current) use of aspirin; Z79.4 Long term (current) use of insulin; I70.201 Unspecified atherosclerosis of native arteries of extremities, right leg
CPT/HCPCS: 11042; 80053; 82962; 85025; 85610; 85730; C9363; J0690; J2250; J3010; Q4118

== ENCOUNTER 2019-05-12 13:57 | Day surgery (SDC) | payer MEDICARE, OTHER ==
[2019-05-12] VITALS (19 sets, daily range): BP systolic 53–105; BP diastolic 42–58; PULSE 76–80; RESP 14–25; Ht 180.3 cm; Wt 148.6 kg
[~2019-05-12] VITALS: Ht 180.3 cm; Wt 148.6 kg
[~2019-05-12 13:57] MED LIST changes: +EXEN2PEN SQ; +INSU100I27 SQ; -LANT3I SC; -SITA50TA2 PO; -TERB250T46 PO
[2019-05-12] MEDS ORDERED: INSULIN REGULAR, HUMAN 100 UNIT/1 ML 3ML VIAL SC ONE ×2 (15:00→15:30)
[2019-05-12] MEDS ORDERED: DEXTROSE 50% 50 ML SYRINGE IV PRN ×2 (15:30)
[2019-05-12] MEDS ORDERED: GLUCOSE GEL 15 GRAM TUBE PO PRN ×2 (15:30)
[2019-05-12] MEDS ORDERED: GLUCOSE GEL 15 GRAM TUBE BUCCAL PRN (15:30)
[2019-05-12] MEDS ORDERED: GLUCAGON 1 MG INJ IM PRN (15:30)
[2019-05-12] MEDS ORDERED: POLYMYXIN/BACITRACIN 1L IRRIG ONE (16:22)
[2019-05-12] MEDS ORDERED: ONDANSETRON 4 MG INJ IV PRN (16:30)
[2019-05-12] MEDS ORDERED: METOCLOPRAMIDE 10 MG INJ IV PRN (16:30)
[2019-05-12] MEDS ORDERED: OXYCODONE/ACETAMINOPHEN (5/325) TAB PO PRN (16:30)
[2019-05-12] MEDS ORDERED: LABETALOL HCL 20MG INJ IV PRN (16:30)
[2019-05-12] MEDS ORDERED: EPHEDrine 25 MG/5 ML SYG IV PRN (16:30)
[2019-05-12] MEDS ORDERED: FENTAnyl 50 MCG/ML VIAL IV PRN ×2 (16:30)
[2019-05-12] MEDS ORDERED: hydrALAzine 20 MG INJ IV PRN (16:30)
[2019-05-12] MEDS ORDERED: HYDROmorphONE 1 MG/5 ML IV SYRINGE IV PRN ×2 (16:30)
[2019-05-12] MEDS ORDERED: MIDAZOLAM 1 MG/ML 2 ML INJ ONE (16:56)
[2019-05-12] MEDS ORDERED: FENTAnyl 50 MCG/ML VIAL ONE (16:56)
[2019-05-12] MEDS ORDERED: ONDANSETRON 4 MG INJ ONE (17:05)
[2019-05-12] MEDS ORDERED: CEFAZOLIN 1 GM INJ ONE (17:05)
[2019-05-12] MEDS ORDERED: METOCLOPRAMIDE 10 MG INJ ONE (17:05)
== END 2019-05-12 19:24 | disposition home or self-care (01) ==
LOC: SDS 13:57
PROVIDERS: ATTEND Student in an Organized Health Care Education/Training Program
DX: I70.248 Atherosclerosis of native arteries of left leg with ulceration of other part of lower leg (principal); L97.829 Non-pressure chronic ulcer of other part of left lower leg with unspecified severity; I12.0 Hypertensive chronic kidney disease with stage 5 chronic kidney disease or end stage renal disease; N18.6 End stage renal disease; Z99.2 Dependence on renal dialysis; E11.9 Type 2 diabetes mellitus without complications; Z79.82 Long term (current) use of aspirin; Z79.4 Long term (current) use of insulin
CPT/HCPCS: 11042; 71045; 80053; 82962; 85025; 85610; 85730; 93005; C9363; J0690; J1815; J2250; J2405; J2765; J3010; Q4118